=== PATIENT | male | born 1995 | race Caucasian/White ===

== ENCOUNTER 2018-01-28 14:07 | Emergency (ER) | payer BC ==
[~2018-01-28] VITALS: Ht 165.1 cm; Wt 68.0 kg
[2018-01-28 14:19] VITALS: BP 123/75; PULSE 122; TEMP 98.3; O2SAT 99
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
[2018-01-28 15:25] VITALS: O2SAT 93
[2018-01-28] MEDS ORDERED: ALBU6.7H INH (15:32)
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
[2018-01-28 15:47] VITALS: BP 129/67
== END 2018-01-28 15:48 | disposition home or self-care (01) ==
LOC: PHED 14:07 → EDBD 14:07 → PHED 15:48
DX: T75.1XXA Unspecified effects of drowning and nonfatal submersion, initial encounter (principal); W69.XXXA Accidental drowning and submersion while in natural water, initial encounter; Y93.11 Activity, swimming; Y92.832 Beach as the place of occurrence of the external cause
CPT/HCPCS: 99283